=== PATIENT | female | born 1945 | race Caucasian/White ===

== ENCOUNTER 2019-07-15 15:27 | Inpatient (IN) | payer OTHER ==
[~2019-07-15] VITALS: Ht 157.5 cm; Wt 83.5 kg
[2019-07-15] MEDS ORDERED: methylPREDNISolone SOD SUCC 125 MG/2 ML VL IV ONE (15:45)
[2019-07-15 16:34] LABS: Basophils # (auto) 0 10 ^3/uL (0-0.2); Basophils % (auto) 0.3 % (0.0-2.0); Eosinophils # (auto) 0 10 ^3/uL (0-0.8); Eosinophils % (auto) 0.2 % (0.0-7.0); Hematocrit 33.9 % (36.0-46.0); Hemoglobin 11.2 g/dL (12.2-16.2); Lymphocytes # (auto) 0.8 10 ^3/uL (0.4-5.4); Lymphocytes % (auto) 11.2 % (10.0-50.0); Mean Corpuscular Hemoglobin 27.6 pg (28.0-32.0); Mean Corpuscular Volume 83.7 fL (80.0-100.0); Monocytes # (auto) 0.5 10 ^3/uL (0-1.3); Monocytes % (auto) 6.1 % (0.0-12.0); Neutrophils # (auto) 6.1 10 ^3/uL (1.6-8.6); Neutrophils % (auto) 82.2 % (37.0-80.0); Nucleated Red Blood Cells % 0.1 %; Platelet Count (auto) 233 10^3/uL (140-450); Red Blood Cells 4.05 10^6/uL (4.0-5.20); Red Cell Distribution Width 15.5 % (11.8-14.3); White Blood Cell 7.5 10^3/uL (4.4-10.8)
[2019-07-15 16:44] LABS: Alanine Aminotransferase 16 U/L (13-56); Albumin 1.8 g/dL (3.4-5.0); Anion Gap 14 (5-15); Aspartate Aminotransferase 18 U/L (15-37); BUN/Creatinine Ratio 3.2; Blood Urea Nitrogen 15 mg/dL (7-18); Carbon Dioxide 13 mmol/L (21-32); Chloride 122 mmol/L (98-107); GFR African American 12 mL/min; GFR Non-African American 10 mL/min; Glucose 57 mg/dL (74-106); Sodium 149 mmol/L (136-145)
[2019-07-15 16:48] LABS: Alkaline Phosphatase 77 U/L (45-117); Bilirubin, Total 0.2 mg/dL (0.2-1.0)
[2019-07-15] MEDS ORDERED: FUROSEMIDE 40 MG/4 ML VIAL IV ONE (17:00)
[2019-07-15 17:34] LABS: Potassium 2.2 mmol/L (3.5-5.1)
[2019-07-15] MEDS ORDERED: POTASSIUM CHL 20MEQ/100ML 100 ML IV ONE (18:00)
[2019-07-15 18:17] LABS: Urine Bacteria NONE SEEN /hpf (None Seen); Urine Blood 1+ /uL (Negative); Urine Hyaline Cast FEW /lpf (0 - 2); Urine Mucus FEW (None Seen); Urine Specific Gravity 1.015 (1.001-1.035); Urine WBC 2 /hpf (0 - 5)
[2019-07-15] MEDS ORDERED: PIPERACILLIN-TAZOB 3.375GM 100 ML IV ONE (18:45)
[2019-07-15] MEDS ORDERED: ACETAMINOPHEN 500 MG TAB PO ONE (19:15)
[2019-07-15] MEDS ORDERED: POTASSIUM EFFERVESENT TAB 25 MEQ PO ONE (19:30)
[2019-07-15] MEDS ORDERED: ARTIFICIAL TEARS 15ml EACHEYE PRN (19:30)
[2019-07-15] MEDS ORDERED: ACETAMINOPHEN 500 MG TAB PO PRN (19:30)
[2019-07-15] MEDS ORDERED: MORPHINE SULF INJ 2 MG/ML SYRINGE 1ML IV PRN (19:30)
[2019-07-15] MEDS ORDERED: NITROGLYCERIN 0.4 MG SL TAB SL PRN (19:30)
[2019-07-15] MEDS ORDERED: ENOXAPARIN SOD 30 MG/0.3 ML SYRINGE SC SCH (19:59)
[2019-07-15 20:13] LABS: Creatinine, Urine 54 mg/dL (30.0-125.0); Sodium Urine 154 mmol/L (40-220)
[2019-07-15 20:14] LABS: INR 1.07 (0.9-1.15); Partial Thromboplastin Time 25.9 sec (23.64-32.05)
[2019-07-15 20:20] LABS: CRP High Sensitivity 2.99 mg/dL (< 0.3)
[2019-07-15 20:53] VITALS: BP 160/77
[2019-07-15] MEDS: ASCORBIC ACID 1,000 MG TAB PO SCH (21:23)
[2019-07-15] MEDS: CHOLECALCIFEROL (VITD3) 1,000UNIT=25mCg TAB PO SCH (21:24)
[2019-07-15] MEDS: ZINC SULFATE 220mg CAP or TAB PO SCH (21:25)
[2019-07-15] MEDS ORDERED: DOXYCYCLINE 100MG/250ML 250 ML IV SCH (22:00)
[2019-07-15 22:40] VITALS: BP 147/75
--- NOTE | 2019-07-15 22:40 | NUR ---
Telemetry admit from ER JORGESTEPHEN admitted to Telemetry unit after SBAR received. Patient oriented to Bernice Garcia, primary RN, unit, room, bed, and unit policies regarding patient care and visiting hours. Patient now on continuous telemetry monitoring, tele box # 4 and telemetry reading on arrival to unit is . Patient on room air, weighed by bed scale and encouraged to call if they need something. All questions and concerns addressed, patient verbalized understanding. Note:
[2019-07-15] MEDS: ALBUTEROL SULF HFA 90MCG INH 200DOSE IN SCH (22:50)
--- NOTE | 2019-07-16 03:47 | NUR ---
PERSONAL BELONGINGS FORM SIGNED BY TWO NURSES TO AVOID BRINGING FORM IN AND OUT OF PATIENT ROOM.
--- NOTE | 2019-07-16 06:27 | NUR ---
BLOOD SPECIMEN SENT FOR MORNING LABS
[2019-07-16 06:42] LABS: Albumin 2.1 g/dL (3.4-5.0); BUN/Creatinine Ratio 27.8; Calcium 8.6 mg/dL (8.5-10.1); Hematocrit 33.6 % (36.0-46.0); Mean Corpuscular Hemoglobin 27.1 pg (28.0-32.0); Mean Corpuscular Hgb Conc. 32.8 g/dL (32.0-36.0); Mean Corpuscular Volume 82.7 fL (80.0-100.0); Platelet Count (auto) 270 10^3/uL (140-450); Potassium 4.5 mmol/L (3.5-5.1); Red Blood Cells 4.06 10^6/uL (4.0-5.20); Red Cell Distribution Width 15.3 % (11.8-14.3); White Blood Cell 7.9 10^3/uL (4.4-10.8)
[2019-07-16 06:43] LABS: Basophils % (manual) 0 (0.0-2.0); Blast Cells 0; Eosinophils % (manual) 0 (0-7); Promyelocytes % 0; Reactive Lymphocytes 0
[2019-07-16 06:45] LABS: Bilirubin, Total 0.3 mg/dL (0.2-1.0); Total Protein 6.9 g/dL (6.4-8.2)
[2019-07-16] MEDS: ALBUTEROL SULF HFA 90MCG INH 200DOSE IN SCH (06:50)
[2019-07-16 07:11] LABS: Band Neutrophils % (manual) 1; Lymphocytes % (manual) 10 (10.0-50.0); Metamyelocytes % 2; Monocytes % (manual) 1 (0-12); Myelocytes % 2
--- NOTE | 2019-07-16 07:30 | NUR ---
Opening Shift Note Assumed care of patient, awake and alert. No S/S of distress/SOB. Pt denies having pain at this time. Bed in lowest and locked position with side rails up x2 and call light in reach. Instructed on POC and to call for assist PRN, will continue to monitor for changes Q1hr and PRN.
[2019-07-16 08:00] VITALS: BP 159/92
[2019-07-16] MEDS: MAGNESIUM SULFATE 1GM/100ML 100 ML IV SCH ×2 (10:00→10:24)
[2019-07-16] MEDS ORDERED: FUROSEMIDE 20 MG/2 ML VIAL IV SCH (10:00)
[2019-07-16] MEDS: ZINC SULFATE 220mg CAP or TAB PO SCH (10:29)
[2019-07-16] MEDS: CHOLECALCIFEROL (VITD3) 1,000UNIT=25mCg TAB PO SCH (10:30)
[2019-07-16] MEDS: ASCORBIC ACID 1,000 MG TAB PO SCH (10:30)
[2019-07-16] MEDS: OSELTAMIVIR 75 MG CAP PO SCH ×2 (10:30→21:51)
--- NOTE | 2019-07-16 11:15 | NUR ---
COVID NEGATIVE PATIENT RESULTS FOR COVID-19 SHOW NEGATIVE AT THIS TIME. RN NOTIFIED AUTOMATION TESTER, CHRIS.
[2019-07-16 12:00] VITALS: BP 157/83
[2019-07-16] MEDS ORDERED: ACETAMINOPHEN 500 MG TAB PO PRN (12:00)
[2019-07-16] MEDS ORDERED: LISINOPRIL 10 MG TAB PO ONE (12:15)
--- NOTE | 2019-07-16 12:15 | NUR ---
SPOKE TO DR. ROYAL. RN UPDATED DR. ROYAL ON THE PATIENT STATUS AND THE PATIENTS BLOOD PRESSURE. MD AWARE. NO NEW ORDERS RECEIVED AT THIS TIME.
--- NOTE | 2019-07-16 12:29 | NUR ---
REPORT GIVEN TO RECEIVING RNHARSHIL. RN UPDATED HARSHIL ON THE MAGNESIUM ADMINISTRATION. HARSHIL KEITH.
--- NOTE | 2019-07-16 12:40 | NUR ---
PATIENT TRANSPORTED TO ROOM 206 VIA WHEEL CHAIR. PATIENT TRANSPORTED WITH ALL PERSONAL BELONGINGS, ASSISTED BY RECEIVING RNHARSHIL. NO S/S OF DISTRESS OR SOB AT THIS TIME.
[2019-07-16 17:00] VITALS: BP 150/77
[2019-07-16] MEDS ORDERED: ENOXAPARIN SOD 40 MG/0.4 ML SYRINGE SC SCH (18:00)
--- NOTE | 2019-07-16 19:30 | NUR ---
Opening shift note Assumed care of patient. Patient A&Ox4, respirations even and non-labored without SOB or signs of distress. Discussed POC with patient who verbalized understanding. Bed lowered/locked with 2 side rails up. Call light within reach. Will continue to monitor Q1hr and PRN.
--- NOTE | 2019-07-16 19:45 | NUR ---
Closing note Patient is comfortably resting in bed, no s/s of distress/noted/stated. Bed at lowest locked position and call light within reach. Report given to DARVIN RN.
[2019-07-16 22:00] VITALS: BP 142/67
[2019-07-17 05:00] VITALS: BP 151/73
[2019-07-17 05:32] LABS: Basophils # (auto) 0 10 ^3/uL (0-0.2); Basophils % (auto) 0.2 % (0.0-2.0); Eosinophils # (auto) 0 10 ^3/uL (0-0.8); Eosinophils % (auto) 0.4 % (0.0-7.0); Hematocrit 35.9 % (36.0-46.0); Hemoglobin 11.8 g/dL (12.2-16.2); Lymphocytes # (auto) 1.4 10 ^3/uL (0.4-5.4); Lymphocytes % (auto) 16.6 % (10.0-50.0); Mean Corpuscular Hemoglobin 27.2 pg (28.0-32.0); Mean Corpuscular Hgb Conc. 32.8 g/dL (32.0-36.0); Mean Corpuscular Volume 82.9 fL (80.0-100.0); Monocytes # (auto) 0.4 10 ^3/uL (0-1.3); Monocytes % (auto) 4.5 % (0.0-12.0); Neutrophils # (auto) 6.5 10 ^3/uL (1.6-8.6); Neutrophils % (auto) 78.3 % (37.0-80.0); Nucleated Red Blood Cells % 0.1 %; Platelet Count (auto) 277 10^3/uL (140-450); Red Blood Cells 4.33 10^6/uL (4.0-5.20); Red Cell Distribution Width 15.3 % (11.8-14.3); White Blood Cell 8.3 10^3/uL (4.4-10.8)
[2019-07-17 05:40] LABS: BUN/Creatinine Ratio 40.2; Calcium 8.8 mg/dL (8.5-10.1); Potassium 4.9 mmol/L (3.5-5.1)
--- NOTE | 2019-07-17 07:12 | NUR ---
Closing shift note Patient resting with eyes closed, respirations even and non-labored with no s/s of distress. Endorsed care to day primary care RN.
--- NOTE | 2019-07-17 07:30 | NUR ---
Opening Shift Note Assumed care of patient, who is alert and oriented x4. No S/S of distress/SOB or pain. Respirations are even and unlabored. Bed is low, locked with 2x side rails up. Call light is within reach. Instructed on POC and to call for assist PRN, will continue to monitor for changes Q1hr and PRN.
[2019-07-17 09:00] VITALS: BP 136/73
[2019-07-17] MEDS: LISINOPRIL 10 MG TAB PO SCH (09:20)
[2019-07-17] MEDS: OSELTAMIVIR 75 MG CAP PO SCH ×2 (09:20→22:11)
[2019-07-17] MEDS ORDERED: FUROSEMIDE 40 MG/4 ML VIAL IV SCH (10:00)
[2019-07-17] MEDS ORDERED: POTASSIUM CHL 10 Meq TABLET PO SCH (10:00)
[2019-07-17 13:00] VITALS: BP 151/73
[2019-07-17] MEDS ORDERED: MOME200A INH (16:38)
[2019-07-17] MEDS ORDERED: METO25TA93 PO (16:38)
[2019-07-17] MEDS ORDERED: ATOR20TA50 PO (16:38)
[2019-07-17] MEDS ORDERED: TIOTCAP IN (16:38)
[2019-07-17] MEDS ORDERED: HYDR200T36 PO (16:38)
[2019-07-17] MEDS ORDERED: ASPI81CH59 PO (16:38)
[2019-07-17] MEDS ORDERED: AML5T PO (16:38)
[2019-07-17] MEDS ORDERED: CEVI30CA2 PO (16:38)
[2019-07-17] MEDS ORDERED: FERR-20 PO (16:38)
[2019-07-17] MEDS ORDERED: CALC-440 PO (16:38)
[2019-07-17] MEDS ORDERED: MULT-228 PO (16:38)
[2019-07-17] MEDS ORDERED: TRAZ-181 PO (16:38)
--- NOTE | 2019-07-17 16:46 | NUR ---
Med Rec Updated and preferred pharmacy updated. Copy of home medications in hard chart. Will continue to monitor.
[2019-07-17 17:00] VITALS: BP 134/75
--- NOTE | 2019-07-17 20:00 | NUR ---
Opening shift note Assumed care of patient. Patient standing up in room, A&Ox4, respirations even and non-labored with no s/s of distress. Patient had no c/o pain or concerns. Discussed POC with patient who verbalized understanding. Bed lowered/locked with 2 side rails up. Call light on bed, will continue to monitor Q1hr and PRN.
[2019-07-17 22:00] VITALS: BP 136/70
--- NOTE | 2019-07-18 | NUR ---
Rounding Patient resting with eyes closed, respirations even and non-labored with no s/s of distress. Will continue to monitor.
[2019-07-18 05:00] VITALS: BP 128/70
--- NOTE | 2019-07-18 07:06 | NUR ---
Closing shift note Patient sitting up A&Ox4, respirations even and non-labored with no s/s of distress. Endorsed care to day shift primary care EDEN Winchester.
[2019-07-18 08:44] VITALS: BP 127/64
[2019-07-18] MEDS: OSELTAMIVIR 75 MG CAP PO SCH (09:48)
[2019-07-18] MEDS: LISINOPRIL 10 MG TAB PO SCH (09:48)
[2019-07-18] MEDS ORDERED: TAMIFLU PO (10:47)
[2019-07-18 11:08] VITALS: BP 127/64
--- NOTE | 2019-07-18 12:24 | NUR ---
Discharge instructions given as ordered. Encourage to follow up with LEISAD Jaciel) as instructed. All questions and concerns addressed. Patient verbalized understanding. IV removed with catheter intact, pressure dressing applied. Patient taken to vehicle via wheelchair with all personal belongings, accompanied by staff. No distress noted at time of departure.
== END 2019-07-18 12:26 | disposition home or self-care (01) | DRG 291 ==
LOC: ER 15:27 → EDBD 15:27 → TELE 15:28 → TELE-CENTR 22:31 → TELE-EAST 22:40 → TELE-CENTR 07-16 13:58 → CENTRAL 07-17 11:20
PROVIDERS: ADMIT Nurse Practitioner Acute Care; ATTEND Internal Medicine
DX: I13.0 Hypertensive heart and chronic kidney disease with heart failure and stage 1 through stage 4 chronic kidney disease, or unspecified chronic kidney disease (principal); J96.00 Acute respiratory failure, unspecified whether with hypoxia or hypercapnia; E43 Unspecified severe protein-calorie malnutrition; N17.0 Acute kidney failure with tubular necrosis; I50.43 Acute on chronic combined systolic (congestive) and diastolic (congestive) heart failure; E87.6 Hypokalemia; J44.9 Chronic obstructive pulmonary disease, unspecified; E66.9 Obesity, unspecified; M35.00 Sjogren syndrome, unspecified; N18.9 Chronic kidney disease, unspecified; J10.1 Influenza due to other identified influenza virus with other respiratory manifestations; E11.22 Type 2 diabetes mellitus with diabetic chronic kidney disease; Z68.33 Body mass index [BMI] 33.0-33.9, adult; Z20.828 Contact with and (suspected) exposure to other viral communicable diseases; D64.9 Anemia, unspecified; E03.9 Hypothyroidism, unspecified; E78.5 Hyperlipidemia, unspecified; Z80.9 Family history of malignant neoplasm, unspecified; Z87.891 Personal history of nicotine dependence
CPT/HCPCS: 36415; 71045; 76604; 80048; 80053; 81001; 82570; 82728; 83605; 83615; 83735; 83880; 84300; 84484; 85007; 85025; 85027; 85379; 85610; 85730; 86141; 87040; 87070; 87804; 87880; 93005; 93306; 93970; 94640; G0378; J2543; J3480; J3490